=== PATIENT | male | born 1960 | race Caucasian/White ===

== ENCOUNTER 2022-03-21 09:16 | Day surgery (SDC) | payer BC ==
[~2022-03-21] VITALS: Ht 180.3 cm; Wt 85.5 kg
[2022-03-21 10:18] VITALS: BP 128/73; PULSE 62; TEMP 97.8
[2022-03-21] MEDS ORDERED: NORCO 325 MG-51 TAB PO (13:54)
[2022-03-21 14:20] VITALS: BP 123/79; PULSE 76; TEMP 97.4
--- NOTE | 2022-03-21 14:20 | NUR ---
1420 PATIENT RETURNS TO ROOM 6 VIA CART. PATIENT IS DROWSY BUT ALERTS TO VERBAL STIMULI. PATIENT IS IN ROOM. RESPIRATIONS EVEN AND UNLABORED. VITAL SIGNS OBTAINED. 4 INCISION SITES TO ABDOMEN HELD TOGETHER WITH GLUE. ALL CDI. 1425 PATIENT REQUESTED MUFFIN, COFFEE AND WATER. NO DIFFICULTIES SWALLOWING. 1430 PATIENT REQUESTED PRN PAIN PILL. PRN NORCO GIVEN PO ALONG WITH MED EDUCATION. 1440 THIS NURSE DISCONTINUED IV FROM RIGHT HAND WITH NO DIFFICULTIES. 1445 DISCHARGE INSTRUCTIONS REVIEWED WITH PATIENT AND PATIENT . BOTH VERBALIZED UNDERSTANDING. 1450 PATIENT DRESSES SELF. 1455 PATIENT VOIDS. 1500 PATIENT DISCHARGES FROM UNIT VIA WHEELCHAIR.
[2022-03-21 14:35] VITALS: BP 121/74; PULSE 84
[2022-03-21 14:50] VITALS: BP 153/71; PULSE 86
[2022-03-21 16:01] VITALS: BP 130/76; PULSE 73; TEMP 98
== END 2022-03-21 15:00 | disposition home or self-care (01) ==
LOC: SDCO 09:16
DX: K40.90 Unilateral inguinal hernia, without obstruction or gangrene, not specified as recurrent (principal); K42.9 Umbilical hernia without obstruction or gangrene; F17.210 Nicotine dependence, cigarettes, uncomplicated
CPT/HCPCS: C1781; J0690; J1100; J1885; J2405; J2704; J3010; J7120